=== PATIENT | female | born 1930 | race Caucasian/White ===

== ENCOUNTER 2016-09-14 14:49 | Inpatient (IN) | payer MEDICARE, OTHER ==
[2016-09-14] MEDS ORDERED: IOPAMIDOL 300 (61%) 150 ML VIAL IV ONE (14:50)
[2016-09-14 15:40] LABS: ABSOLUTE NEUTROPHIL COUNT 5.8 K/mm3 (1.8-7.7); BASO % 0.3 % (0.2-1.0); EOS % 0.1 % (0.9-2.9); HEMATOCRIT 36.6 % (37.0-47.0); IMM NEUT% 0.1 % (0-1); LYMPH # 0.3 (1.0-4.8); LYMPH % 4.9 % (15-45); MEAN CELL VOLUME 89.9 fl (81.0-99.0); MEAN CORPUSCULAR HEMOGLOBIN 31.9 pg (27.0-31.0); MEAN CORPUSCULAR HGB CONC 35.5 g/dl (33.0-37.0); MEAN PLATELET VOLUME 9.8 fl (7.4-10.4); MONO # 0.6 (0.0-0.8); MONO % 8.8 % (4-12); NEUT % 85.8 % (43-75); PLATELET COUNT 152 K/mm3 (130-400); RED CELL DISTRIBUTION WIDTH 13.2 % (11.5-14.5)
[2016-09-14 15:43] LABS: ALB/GLOB RATIO 1.2 (>1.0); ALBUMIN 3.6 gm/dL (3.5-5.7); CALCIUM 8.9 mg/dL (8.6-10.3)
[2016-09-14] MEDS ORDERED: LACTATED RINGERS 1,000 ML ONE (16:26)
--- NOTE | 2016-09-14 16:34 | CT ---
Exam: CT abdomen and pelvis with contrast COMPARISON: 11/26/2015 and radiographs 11/27/2015, 11/28/2015 and 11/29/2015 INDICATION: Abdominal pain and vomiting. TECHNIQUE: CT examination of the abdomen and pelvis was obtained following the administration of 125 of Isovue-300 intravenous contrast. Findings: Appearance of the abdomen is similar to that seen on 11/26/2015. There is relative dilation of the proximal small bowel which measures up to 3.7 cm in diameter. The ileum is relatively decompressed, with a subtle transition point seen within the right upper quadrant as annotated on axial image 53 of 113 and coronal reformation 29 of 71. No mass is identified in this location. There is no focal bowel wall thickening or pneumatosis. There is no free air or free intraperitoneal fluid. Mildly prominent mesenteric lymph nodes are noted, more significant for number rather than size, and are unchanged. Mesenteric vessels are patent. The uterus is absent. There is a stable cystic lesion within the deep left pelvis with a few peripheral calcifications which measures up to 4.7 x 3.8 cm. This is of uncertain etiology and significance. This could be related to the adnexa or perhaps a lymphocele. Nevertheless this is stable and probably of no clinical concern as patient. No additional pelvic lymphadenopathy or fluid collection. There is colonic diverticulosis, most pronounced within the sigmoid colon, without evidence of diverticulitis. There is right hip arthroplasty which slightly limits evaluation the right pelvic sidewall. Calcifications within the dependent portion of the urinary bladder unchanged, either urinary calculi within the urinary bladder wall. Urinary bladder otherwise unremarkable. Atheromatous and ectatic but nonaneurysmal abdominal aorta and iliac arteries. The liver, spleen, pancreas, adrenal glands and gallbladder are unremarkable. 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 There is mild fullness of the collecting systems without hydronephrosis. Kidneys otherwise unremarkable. Tiny splenic artery aneurysm is noted, of no clinical concern. Mild right basilar scarring or atelectasis is unchanged. Lung bases otherwise clear. Grade 1 anterolisthesis of L5 on S1 is similar. Superior endplate fracture of L1 is unchanged. Osteopenia. Multilevel facet arthropathy is present within the lumbar spine. No worrisome lytic or blastic osseous lesion is identified. IMPRESSION: 1. Findings most compatible with a developing or partial small bowel obstruction, similar to that seen on 11/26/2015. Etiology is uncertain. There is no free air or free intraperitoneal fluid. 2. No additional acute findings identified to explain patient's symptoms. Several stable incidental findings as above. Findings were discussed with Dr. Cox at 1630 hours 09/14/2016.
[2016-09-14 16:35] LABS: BAND 24 % (0-10); BASOPHIL 0 % (0-1); EOSINOPHIL 0 % (1-3); LYMPHOCYTE 5 % (15-45); MONOCYTE 6 % (4-12); NEUTROPHILS 65 % (43-75); PLATELET ESTIMATE NORMAL (NORMAL); TOTAL CELLS COUNTED 100
[2016-09-14] MEDS ORDERED: SODIUM CHLORIDE 0.9% 100 ML IV PRN (17:23)
[2016-09-14] MEDS ORDERED: BLISTEX LIPSTICK 1 EACH TP PRN (17:23)
[2016-09-14] MEDS ORDERED: ACETAMINOPHEN 650 MG SUP PR PRN (17:23)
[2016-09-14] MEDS ORDERED: MAGNESIUM HYDROXIDE 30 ML UDCUP PO PRN (17:23)
[2016-09-14] MEDS ORDERED: BISACODYL 5 MG TABLET.EC PO PRN (17:23)
[2016-09-14] MEDS ORDERED: MENTHOL/CETYLPYRD 1 EACH LOZENGE PO PRN (17:23)
[2016-09-14] MEDS ORDERED: BISACODYL 10 MG SUP PR PRN (17:23)
[2016-09-14] MEDS ORDERED: HYDROMORPHONE HCL 2 MG/ML SYRINGE IV PRN (17:29)
[2016-09-14] MEDS ORDERED: PROMETHAZINE HCL 6.25 MG in SODIUM CHLORIDE 0.9% 50 ML IV PRN (17:29)
[2016-09-14] MEDS ORDERED: ONDANSETRON 4 MG/2ML 2 ML VIAL IV PRN (17:29)
[2016-09-14 17:42] VITALS: BMI 28.9
[2016-09-14] MEDS ORDERED: HYDROMORPHONE HCL 1 MG/ML SYRINGE IV PRN (17:43)
[2016-09-14] MEDS ORDERED: HYDROMORPHONE HCL 0.5 MG/0.5 ML SYRINGE IV PRN (17:44)
[2016-09-14] MEDS ORDERED: PUMP TUBING ONE (18:10)
[2016-09-14] MEDS: SODIUM CHLORIDE 0.9% 1,000 ML IV SCH (18:14)
[2016-09-14] MEDS: DOCUSATE SODIUM 100 MG CAPSULE PO SCH (20:04)
--- NOTE | 2016-09-14 21:14 | HP ---
BRODERICK GAITAN [id number] DATE OF ADMISSION: 09/14/2016 CHIEF COMPLAINT: Nausea and vomiting. HISTORY OF PRESENT ILLNESS: The patient is an 86-year-old female who presented to the [facility] Emergency Department with complaints of repeated episodes of nausea and vomiting which started this morning. She also had an episode of diarrhea this morning. Workup in the emergency department showed evidence of an early partial small bowel obstruction. REVIEW OF SYSTEMS: Negative for any fatigue, fevers or chills. She denies any recent upper respiratory symptoms. She has a slightly chronic cough which she attributes to her allergies. She denies any chest pain, shortness of breath or palpitations. She has not had any significant abdominal pain. She has felt a bit nauseated, but is feeling better after she threw-up. She had a loose stool this morning as I mentioned. She denies any new arthralgias, but has chronic arthralgias due to osteoarthritis. She denies any headaches, fainting, blackouts or seizures. She has had no urinary complaints. Review of systems is otherwise negative. PAST MEDICAL HISTORY: Significant for: 1. A hospitalization for partial small bowel obstruction in November of 2015, which resolved spontaneously without surgery. 2. She has a past history significant for coronary artery disease, with a myocardial infarction in September of 2006, treated with a stent. 3. She has had chronic essential hypertension, as well as hyperlipidemia. 4. She has had hypothyroidism, on thyroid replacement. 5. Some chronic neck pain associated with cervical spondylosis. 6. She has had some mild chronic hyponatremia, with a serum sodium level generally around 128-133. PAST SURGICAL HISTORY: Significant for: 1. Appendectomy as a child. 2. Tonsillectomy. 3. She had four prior caesarian section. 4. She also had a hysterectomy many years ago. 5. She had a stent placed in the left anterior descending artery in [place] in September of 2006. 6. She had a screening colonoscopy in March of 2010, showing diverticulosis. 7. She had a left total knee arthroplasty in August of 2006. 8. She had a cystocele and suburethral sling placed in December of 2005. 9. Arthroscopic in the left knee, with a partial meniscectomy in January of 2005. 10. Left thumb surgery for a trigger finger in November of 2003. 11. She has had a vein stripping procedure in the past. ALLERGIES: Documented to: 1. Fentanyl. 2. Codeine. 3. Pollen. 4. Walnuts. CURRENT MEDICATIONS: Consist of: 1. Vitamin E 400 units twice daily. 2. Vitamin D-3, 1,000 units twice daily. 3. Vitamin C 500 mg twice daily. 4. Amlodipine 10 mg daily. 5. Extra-strength Tylenol 1,000 mg every four hours as needed for pain. 6. Ibuprofen 800 mg daily as needed for pain. 7. Colace 100 mg twice daily. 8. Vitamin D-3 plus calcium 500/200 units one daily. 9. Enteric-coated aspirin 81 mg daily. 10. Lovastatin 40 mg at bedtime. 11. Ativan 0.5 mg every six hours as needed for anxiety or at bedtime as needed for sleep. 12. Claritin 10 mg daily for allergies. 13. Lisinopril 10 mg daily. 14. Levothroid 75 mcg daily. 15. Fish oil 1,000 mg twice daily. 16. Toprol XL 100 mg daily. IMMUNIZATIONS: She had a Prevnar vaccination in June of 2016. She got a flu vaccination on 04/27/2016. It is believed she has had a pneumococcal vaccination since she was 63. FAMILY HISTORY: Positive for a father who of coronary artery disease. SOCIAL HISTORY: The patient is . She has five children. She has a daughter and several other children who live locally, and she lives independently at [facility]. She has never smoked. Denies any significant history of alcohol use. Denies any illicit drug use. She is [employer]. PHYSICAL EXAMINATION: VITAL SIGNS: Blood pressure 142/93. Heart rate up to 126. Oxygen saturations of 91% on room air. Respiratory rate is 17. Temperature is 98.1. Body mass index is 28.9, with a weight of 74 kilograms. GENERAL: This is a well-developed and well-nourished elderly female in no acute distress. HEENT: Unremarkable. NECK: Supple, without lymphadenopathy or thyromegaly. LUNGS: Clear to auscultation bilaterally. CARDIOVASCULAR: Reveals a regular tachycardia, without a murmur. ABDOMEN: Reveals mild distention. No significant tenderness. Slightly hypoactive bowel sounds. No guarding. PELVIC: Exam is deferred. RECTAL: Exam is deferred. EXTREMITIES: Show no peripheral edema, but she does have marked varicose veins in both lower extremities. IMAGING: A CT scan of the abdomen and pelvis was performed, showing findings consistent with an early or partial small bowel obstruction. No other acute findings. She did have some mild right basilar scarring versus atelectasis, favor scarring since this has been chronic. LABS: Laboratory studies showed a white count of 6.8, hemoglobin 13.0 and a platelet count of 152,000. Chemistry profile showed a sodium of 128, potassium 4.2, chloride 95, BUN of 23 and creatinine 0.9. Liver function tests are normal. Lipase is normal at 7. ASSESSMENT/PLAN: 1. The patient has had nausea and vomiting, with CT evidence of a partial small bowel obstruction. 2. She has a bit of tachycardia, suspect due to dehydration or anxiety. She will be given saline because of her mild chronic hyponatremia, and will monitor heart rate closely. 3. She has a history of coronary artery disease and some elevated blood pressure, so I am going to go ahead and put her on Lopressor 5 mg scheduled every six hours and give her a dose now. 4. She has a history of hypothyroidism and some mild chronic hyponatremia as I mentioned. 5. Also some chronic neck pain associated with cervical spondylosis. CODE STATUS: Not documented, and is full code by default. Further treatment and recommendations will depend on her hospital course. VTE risk is moderate and mechanical measures are being used for prophylaxis. cc: Dr. Avery Veronica
[2016-09-14] MEDS: METOPROLOL TARTRATE 1 MG/ML 5ML VIAL IV SCH (23:39)
[2016-09-15] MEDS ORDERED: LORAZEPAM 0.5 MG TABLET PO PRN (00:16)
[2016-09-15] MEDS ORDERED: MELATONIN 3 MG TABLET PO ONE ×2 (00:16→20:30)
[2016-09-15] MEDS ORDERED: METOPROLOL TARTRATE 1 MG/ML 5ML VIAL IV ONE ×2 (00:18→00:47)
[2016-09-15] MEDS: SODIUM CHLORIDE 0.9% 1,000 ML IV SCH ×4 (00:37→23:39)
[2016-09-15] MEDS ORDERED: METOPROLOL SUCCINATE (XL) 50 MG TAB.PRT.SR PO ONE (02:42)
[2016-09-15] MEDS: METOPROLOL SUCCINATE (XL) 50 MG TAB.PRT.SR PO SCH ×2 (02:46→08:50)
[2016-09-15] MEDS: METOPROLOL TARTRATE 1 MG/ML 5ML VIAL IV SCH ×4 (05:01→23:04)
[2016-09-15 05:56] LABS: ABSOLUTE NEUTROPHIL COUNT 3.3 K/mm3 (1.8-7.7); BASO % 0.2 % (0.2-1.0); EOS % 0.2 % (0.9-2.9); HEMATOCRIT 34.9 % (37.0-47.0); LYMPH # 0.5 (1.0-4.8); LYMPH % 10.8 % (15-45); MEAN CELL VOLUME 91.1 fl (81.0-99.0); MEAN CORPUSCULAR HEMOGLOBIN 31.3 pg (27.0-31.0); MEAN CORPUSCULAR HGB CONC 34.4 g/dl (33.0-37.0); MEAN PLATELET VOLUME 9.6 fl (7.4-10.4); MONO # 0.5 (0.0-0.8); MONO % 11.5 % (4-12); NEUT % 77.3 % (43-75); PLATELET COUNT 133 K/mm3 (130-400); RED CELL DISTRIBUTION WIDTH 13.4 % (11.5-14.5)
[2016-09-15 06:14] LABS: CALCIUM 8.5 mg/dL (8.6-10.3)
[2016-09-15 06:25] LABS: ACANTHROCYTES 1+; ANISOCYTOSIS 1+; ATYPICAL LYMPHOCYTE 2 %; BAND 4 % (0-10); BASOPHIL 0 % (0-1); EOSINOPHIL 0 % (1-3); LYMPHOCYTE 9 % (15-45); MONOCYTE 3 % (4-12); NEUTROPHILS 82 % (43-75); PLATELET ESTIMATE NORMAL (NORMAL); TOTAL CELLS COUNTED 100
--- NOTE | 2016-09-15 08:37 | RAD ---
ACUTE ABDOMINAL SERIES HISTORY: Bowel obstruction. Upright and supine radiographs of the abdomen were acquired. Upright chest radiograph also acquired. COMPARISON: 12/25/2015. Correlation also made against mold yarn supervisor topogram from CT examination, 09/14/2016. FINDINGS: BOWEL GAS PATTERN: Progressive distention of small bowel at the central abdomen, measuring up to 5.1 cm in width, or scattered gas identified within more distal loops of small bowel. AIR-FLUID LEVELS: Multiple small bowel air-fluid levels. FREE AIR: No gross free air. ABDOMINOPELVIC CALCIFICATIONS: Coarse calcification of the right hemipelvis and left upper quadrant. Findings compatible with rim calcified splenic artery aneurysm, 9 mm in size, seen on November 2015 CT imaging. LUNG MCDANIEL: Grossly clear. Aortic tortuosity and calcification. PLEURAL EFFUSION: None. OSSEOUS STRUCTURES: Defect of the right proximal humerus compatible with remote injury. Findings of lumbar spondylosis with compression deformity of the L1 vertebra, long-standing. Evidence of right hip arthroplasty. BLADDER: Increased density compatible with excretion of contrast. IMPRESSION: Progressive small bowel dilatation of multiple air-fluid levels, compatible with small bowel obstruction. No free air. Contrast excretion keeping with recent CT examination. Evidence of aortic atherosclerotic disease. Rounded calcification compatible with known splenic artery aneurysm. Redemonstration of L1 compression deformity and prior right hip arthroplasty.
[2016-09-15] MEDS: DOCUSATE SODIUM 100 MG CAPSULE PO SCH ×2 (08:48→21:04)
[2016-09-15] MEDS: ASPIRIN (ENTERIC COATED) 81 MG TABLET.EC PO SCH (08:48)
[2016-09-15] MEDS: LISINOPRIL 10 MG TABLET PO SCH (08:48)
[2016-09-15] MEDS: AMLODIPINE BESYLATE 5 MG TABLET PO SCH (08:49)
[2016-09-15] MEDS ORDERED: AMLODIPINE BESYLATE 10 MG TABLET PO SCH (09:00)
[2016-09-15] MEDS ORDERED: LACTATED RINGERS 500 ML IV SCH ×2 (10:38→10:45)
[2016-09-15] MEDS ORDERED: LACTATED RINGERS 1,000 ML ONE (10:40)
[2016-09-15] MEDS ORDERED: LACTATED RINGERS 500 ML IV ONE (11:20)
--- NOTE | 2016-09-15 12:00 | PDOC43 ---
- Subjective Chief Complaint: N/V, abd pain Subjective: Reports Pain Tolerable, Denies Flatus, Denies Bowel Movement, Denies Shortness of Breath, Denies Chest Pain, Denies Vomiting, Denies Fever - Objective Vital Signs Temperature 98.4 F 09/15/16 08:00 Pulse Rate 130 09/15/16 08:00 Respiratory Rate 18 09/15/16 08:00 Blood Pressure 140/93 09/15/16 08:00 O2 Saturation by Pulse Oximetry 92 09/15/16 08:00 Oxygen Delivery Method Room Air Oxygen Flow Rate 0 Intake and Output 09/14/16 09/15/16 09/16/16 06:59 06:59 06:59 Intake Total 1785 Output Total 1750 Balance 35 General: Alert, Oriented x3, Cooperative, No Acute Distress HEENT: Other (dry mucosa) Lungs: Clear to Auscultation Bilaterally Cardiovascular: Other (regular tachycardia) Abdomen: Soft, Normal Bowel Sounds, Mild Distention, No Tenderness Extremities: No Edema Skin: Warm, Dry, Intact Laboratory 09/15/16 05:30 09/15/16 05:30 09/15/16 05:30 RBC 3.83 L MCH 31.3 H Estimated GFR 94 H Calcium 8.5 L Current Medications: Current meds reviewed in EMR. - Problems: Assessment/Plan (1) Partial small bowel obstruction Status: Acute Assessment/Plan: persistent partial SBO likely due to adhesions,- bowel rest, IVF (2) HTN (hypertension), benign Status: Chronic Assessment/Plan: stable, cont meds with sips (3) CAD (coronary artery disease) Qualifiers: Coronary Disease-Associated Artery/Lesion type: [place] artery [place] vs. transplanted heart: [place] heart Associated angina: without angina Qualifier Code: (I25.10) Atherosclerotic heart disease of [place] coronary artery without angina pectoris Status: Chronic Assessment/Plan: denies chest pain-check troponin this am, on tele with unexplained sinus tachy despite IVF, not in sig. pain or anxiety-trial of IVF and cont beta gilbert, check TSH, consider CTA if develops resp. symptoms (4) Hypothyroid Qualifiers: Hypothyroidism type: acquired Qualifier Code: (E03.9) Hypothyroidism, unspecified Status: Chronic Assessment/Plan: on replacement-TSH pending (5) Hyponatremia Status: Chronic Assessment/Plan: chronic at baseline VTE Prophylaxis: mech measures due to possible need for surgery Disposition: PT/OT evals pending likely home in 1-3 days as obstruction clears
[2016-09-15] MEDS ORDERED: IOPAMIDOL 370 (76%) 100 ML VIAL IV ONE (14:18)
--- NOTE | 2016-09-15 14:54 | CT ---
ADDENDUM #1 3D imaging was not performed. ORIGINAL REPORT CHEST CTA HISTORY: Tachycardia.. TECHNIQUE: Following the administration of 80 mL Isovue-370 intravenous contrast, contiguous axial images were acquired from the thoracic inlet to the diaphragmatic hiatus for CT pulmonary angiography. Comparison 11/26/2015. FINDINGS: PULMONARY ARTERIAL TREE: Technically adequate enhancement: No dominant filling defects. THORACIC AORTA: Extensive atherosclerotic calcification. Mild aneurysmal dilatation of the ascending aorta, up to 4.1 cm in size. Prominent coronary artery calcifications are noted. LUNGS: Diminished lung volumes. Interval development of small pleural effusions. MODESTO AND MEDIASTINUM: No abnormally enlarged lymph nodes. AXILLAE: No grossly enlarged lymph nodes. UPPER ABDOMEN: Contrast within the stomach compatible with ongoing small bowel follow-through. OSSEOUS STRUCTURES: Findings of thoracic disc degeneration. Superior subluxation of the right proximal humerus at the right shoulder associated dystrophic calcifications. IMPRESSION: 1. No CTA evidence of proximal order pulmonary embolus. 2. Low lung volumes with interval development of small pleural effusions. No gross airspace consolidation. 3. Findings of aortic and coronary artery atherosclerotic disease with mild aneurysmal dilatation of the ascending aorta. 4. Prominent degeneration of the right shoulder. 5. Thoracic spondylosis. 6. Oral contrast in keeping with ongoing small bowel follow-through study.
--- NOTE | 2016-09-15 16:35 | RAD ---
SMALL BOWEL FOLLOW-THROUGH HISTORY: Partial obstruction. Serial radiographs acquired following intake of oral contrast. Correlation against acute abdominal series from 09/15/2016. TRANSIT TIME TO COLON: 2 hours. EXTRINSIC MASS EFFECT: None. DISTRIBUTION OF BOWEL LOOPS: Grossly unremarkable. BOWEL DILATATION: Resolution of central small bowel dilatation.. POSTSURGICAL CHANGE: Evidence of prior right hip arthroplasty. Demonstration of L1 compression deformity IMPRESSION: Gastrografin small bowel follow-through, transit time to colon approximately 2 hours with resolution of previously noted small bowel dilatation of the central abdomen..
[2016-09-15] MEDS ORDERED: METOPROLOL TARTRATE 1 MG/ML 5ML VIAL IV SCH (18:19)
[2016-09-15] MEDS ORDERED: DILTIAZEM HCL 5 MG/ML 5ML VIAL IV ONE (23:35)
[2016-09-16] LABS: HEMATOCRIT 33.7 % (37.0-47.0); HEMOGLOBIN 11.6 gm/l (12.0-16.0); MEAN CELL VOLUME 91.1 fl (81.0-99.0); MEAN CORPUSCULAR HEMOGLOBIN 31.4 pg (27.0-31.0); MEAN CORPUSCULAR HGB CONC 34.4 g/dl (33.0-37.0); RED CELL DISTRIBUTION WIDTH 13.4 % (11.5-14.5)
[2016-09-16 00:25] LABS: CALCIUM 8.6 mg/dL (8.6-10.3); MAGNESIUM 1.8 mg/dL (1.9-2.7)
[2016-09-16] MEDS ORDERED: MAGNESIUM SULFATE 2 G/50 ML 2 G in Premix (Water) 50 ml 1 EACH IV ONE (00:48)
[2016-09-16] MEDS ORDERED: POTASSIUM CHLORIDE 20 MEQ in LACTATED RINGERS 1,000 ML IV SCH (00:50)
[2016-09-16] MEDS ORDERED: MAGNESIUM SULFATE 1 G/100 ML 200 ML IV ONE (01:17)
[2016-09-16] MEDS ORDERED: POTASSIUM CHLORIDE 20MEQ/100ML 100 ML IV ONE (01:19)
[2016-09-16] MEDS ORDERED: LACTATED RINGERS 1,000 ML ONE (01:49)
[2016-09-16] MEDS ORDERED: PUMP TUBING ONE ×2 (01:49→02:38)
[2016-09-16] MEDS: MAGNESIUM SULFATE 1 G/100 ML 1 G in PREMIX BAG 1 EACH IV SCH ×2 (02:14→04:16)
[2016-09-16] MEDS ORDERED: DILTIAZEM HCL 5 MG/ML 5ML VIAL IV ONE ×2 (03:38→19:42)
[2016-09-16] MEDS ORDERED: SODIUM CHLORIDE 0.9% FLUSH 10 ML ONE (03:55)
[2016-09-16] MEDS ORDERED: IV START KIT ONE (03:55)
[2016-09-16] MEDS: NS/Potassium Chlor 20 mEq 1,000 ML IV SCH ×3 (04:14→22:19)
[2016-09-16] MEDS: METOPROLOL TARTRATE 1 MG/ML 5ML VIAL IV SCH (05:16)
[2016-09-16] MEDS: ASPIRIN (ENTERIC COATED) 81 MG TABLET.EC PO SCH (09:45)
[2016-09-16] MEDS: AMLODIPINE BESYLATE 5 MG TABLET PO SCH (09:45)
[2016-09-16] MEDS: LISINOPRIL 10 MG TABLET PO SCH (09:46)
[2016-09-16] MEDS: METOPROLOL SUCCINATE (XL) 50 MG TAB.PRT.SR PO SCH (09:47)
[2016-09-16 12:33] LABS: CALCIUM 8.5 mg/dL (8.6-10.3); MAGNESIUM 2.1 mg/dL (1.9-2.7)
[2016-09-16] MEDS ORDERED: METOPROLOL TARTRATE 1 MG/ML 5ML VIAL IV ONE ×2 (14:47→16:13)
--- NOTE | 2016-09-16 15:11 | PDOC43 ---
- Subjective Chief Complaint: N/V, abd pain PAtietn awake and alert, comfortable with 6-7 people in room. She denies any pain, chest pressure or palpitations. Denies feeling racing heart beat. No abdominal pain, no longer vomiting, has not had a bowel movement nor passed gas. Pre nursing, she did have flatus. Subjective: Reports Pain Tolerable, Denies Tolerating Diet Well, Denies Adequate Oral Intake, Denies Bowel Movement, Denies Shortness of Breath, Denies Cough, Denies Chest Pain, Denies Abdominal Pain, Denies Nausea, Denies Vomiting , Denies Fever - Objective Vital Signs Temperature 97.7 F 09/16/16 11:33 Pulse Rate 67 09/16/16 11:33 Respiratory Rate 18 09/16/16 13:00 Blood Pressure 131/76 09/16/16 11:33 O2 Saturation by Pulse Oximetry 96 09/16/16 11:33 Oxygen Delivery Method Nasal Cannula Oxygen Flow Rate 2 Intake and Output 09/14/16 09/15/16 09/16/16 23:59 23:59 23:59 Intake Total 1000 3072 1157 Output Total 2950 460 Balance 1000 122 697 General: Alert, Oriented x3, Cooperative, No Acute Distress HEENT: Atraumatic, PERRLA, EOMI, Mucous membr. moist/pink Lungs: Clear to Auscultation Bilaterally, Normal Air Movement, Other (no crackles or wheeze) Cardiovascular: Regular Rate and Rhythm, Normal S1, Normal S2, Other ( tachycardic) Abdomen: Soft, Hypoactive Bowel Sounds, Non-Distended, No Rigid, No Tenderness, No Rebounding Extremities: No Cyanosis, No Edema, No Tenderness Peripheral Pulses: Radial (L): 2+, Radial (R): 2+ Neurological: Normal Speech Psych/Mental Status: Normal Mood Laboratory 09/15/16 23:50 09/16/16 11:35 09/16/16 09/15/16 11:35 23:50 RBC 3.70 L MCH 31.4 H Estimated GFR 94 H 59 L Calcium 8.5 L Magnesium 1.8 L Troponin I 0.23 H 0.12 H Current Medications: Current meds reviewed in EMR. - Problems: Assessment/Plan (1) Partial small bowel obstruction Status: Acute Assessment/Plan: persistent partial SBO likely due to adhesions,- bowel rest, IVF questionable if passing gas, no bowel movements (2) Hypokalemia Status: Acute Assessment/Plan: Resolved with replacement (3) Hyponatremia Status: Acute Assessment/Plan: chronic at baseline resolved with IVF (4) HTN (hypertension), benign Status: Chronic Assessment/Plan: stable, cont meds with sips (5) Hypothyroid Qualifiers: Hypothyroidism type: acquired Qualifier Code: (E03.9) Hypothyroidism, unspecified Status: Chronic Assessment/Plan: on replacement-TSH pending (6) CAD (coronary artery disease) Qualifiers: Coronary Disease-Associated Artery/Lesion type: [place] artery [place] vs. transplanted heart: [place] heart Associated angina: without angina Qualifier Code: (I25.10) Atherosclerotic heart disease of [place] coronary artery without angina pectoris Status: Chronic Assessment/Plan: denies chest pain-check troponin this am, on tele with unexplained sinus tachy despite IVF, not in sig. pain or anxiety-trial of IVF and cont beta gilbert, check TSH, consider CTA if develops resp. symptoms Has elevated troponin, from demand ischemia and episodes of tachycardia (7) Tachycardia Status: Acute Assessment/Plan: unknown etiology, TSH and electrolyte disturbances resolved. Was in AFIb but converted after 2 doses of diltiazem. She had an episode of her heart rate in the 30's and then a few dropped beats but returned to sinus rhythm will try dose of metoprolol but caution due to inducing hypotension or AV block (8) Anemia Qualifiers: Anemia type: unspecified type Qualifier Code: (D64.9) Anemia, unspecified Status: Acute Assessment/Plan: dilutional VTE Prophylaxis: mech measures due to possible need for surgery Disposition: PT/OT evals pending likely home in 1-3 days as obstruction clears
[2016-09-16 16:03] LABS: URINE BILIRUBIN NEGATIVE (NEGATIVE); URINE BLOOD 3+ (NEGATIVE); URINE GLUCOSE (UA) NEGATIVE (NEGATIVE); URINE LEUKOCYTE ESTERASE NEGATIVE (NEGATIVE); URINE NITRITE NEGATIVE (NEGATIVE); URINE PROTEIN TRACE (NEGATIVE); URINE UROBILINOGEN NORMAL (0-1 mg/dl)
[2016-09-16 16:04] LABS: URINE APPEARANCE CLEAR; URINE COLOR YELLOW
[2016-09-16] MEDS ORDERED: METOPROLOL TARTRATE IV ONE (16:07)
[2016-09-16] MEDS ORDERED: SODIUM CHLORIDE 0.9% IV ONE (16:07)
[2016-09-16 16:14] LABS: URINE EPITHELIAL CELLS 0-2 /hpf
[2016-09-16 16:15] LABS: URINE BACTERIA NONE SEEN
[2016-09-16] MEDS: CEFTRIAXONE 1 GRAM DUPLEX 50 ML IV SCH (16:56)
[2016-09-16] MEDS ORDERED: SODIUM CHLORIDE 0.9% IV SCH (17:00)
[2016-09-16] MEDS ORDERED: CEFTRIAXONE SODIUM IV SCH (17:00)
--- NOTE | 2016-09-16 20:48 | PDOC36 ---
Provider Note Subject: Patient with sinus tach for several hours this afternoon. Provided 5 mg IV metoprolol without response and then 10 mg IV metoprolol with minimal response in sinus tachycardia on telemetry. Patient asymptomatic and comfortable. Due to episode of bradycardia early this morning following cardizem, held off further medication. With continued HR in the 130's for 5 hours, provided dose of diltiazem. Patient then converted to Afib/flutter with HR in 80-100's. Will continue to monitor.
[2016-09-16] MEDS: PANTOPRAZOLE SODIUM 40 MG VIAL IV SCH (21:29)
[2016-09-16] MEDS: MELATONIN 3 MG TABLET PO SCH (21:34)
[2016-09-17] MEDS ORDERED: SODIUM CHLORIDE 0.9% FLUSH 10 ML ONE (00:02)
[2016-09-17] MEDS ORDERED: IV START KIT ONE (00:03)
[2016-09-17] MEDS: NS/Potassium Chlor 20 mEq 1,000 ML IV SCH ×3 (03:59→19:57)
[2016-09-17 06:31] LABS: HEMOGLOBIN 11.6 gm/l (12.0-16.0); MEAN CELL VOLUME 89.2 fl (81.0-99.0); MEAN CORPUSCULAR HEMOGLOBIN 31.4 pg (27.0-31.0); MEAN CORPUSCULAR HGB CONC 35.2 g/dl (33.0-37.0)
[2016-09-17] MEDS ORDERED: DILTIAZEM HCL 60 MG TABLET PO ONE (06:41)
[2016-09-17 06:44] LABS: CALCIUM 9.3 mg/dL (8.6-10.3); MAGNESIUM 1.7 mg/dL (1.9-2.7)
--- NOTE | 2016-09-17 07:11 | PDOC43 ---
- Subjective Chief Complaint: N/V, abd pain Patient awake and alert, denies any abdominal pain. She cannot feel her rapid heart, denies lightheadedness or shortness of breath. She would like some water. Passed gas yesterday but no bowel movements. Subjective: Reports Pain Tolerable, Reports Flatus, Denies Tolerating Diet Well , Denies Adequate Oral Intake, Denies Bowel Movement, Denies Shortness of Breath , Denies Cough, Denies Chest Pain, Denies Abdominal Pain, Denies Nausea, Denies Vomiting - Objective Vital Signs Temperature 97.7 F 09/17/16 03:40 Pulse Rate 62 09/17/16 03:40 Respiratory Rate 18 09/17/16 03:40 Blood Pressure 126/54 09/17/16 03:40 O2 Saturation by Pulse Oximetry 92 09/17/16 03:40 Oxygen Delivery Method Nasal Cannula Oxygen Flow Rate 2 Intake and Output 09/15/16 09/16/16 09/17/16 23:59 23:59 23:59 Intake Total 3072 1157 Output Total 2950 960 1200 Balance 122 197 -1200 General: Alert, Oriented x3, Cooperative, No Acute Distress HEENT: Atraumatic, PERRLA, EOMI, Mucous membr. moist/pink Lungs: Clear to Auscultation Bilaterally, Normal Air Movement, Other (no crackle or wheeze) Cardiovascular: Regular Rate and Rhythm, Normal S1, Normal S2, Other ( tachycardia) Abdomen: Soft, Normal Bowel Sounds, Mild Distention, No Rigid, No Tenderness, No Rebounding Extremities: No Cyanosis, No Edema, No Tenderness Peripheral Pulses: Radial (L): 2+, Radial (R): 2+, Posterior Tibialis (L): 2+, Posterior Tibialis (R): 2+ Neurological: Normal Speech Psych/Mental Status: Normal Mood Laboratory 09/17/16 05:30 09/17/16 05:30 09/17/16 09/16/16 05:30 11:35 RBC 3.70 L MCH 31.4 H Anion Gap 7 L Estimated GFR 94 H 94 H Calcium 8.5 L Magnesium 1.7 L Troponin I 0.23 H Current Medications: Current meds reviewed in EMR. - Problems: Assessment/Plan (1) Partial small bowel obstruction Status: Acute Assessment/Plan: persistent partial SBO likely due to adhesions,- bowel rest, IVF questionable if passing gas, no bowel movements (2) Hypokalemia Status: Acute Assessment/Plan: Resolved with replacement (3) Hyponatremia Status: Acute Assessment/Plan: chronic at baseline resolved with IVF (4) HTN (hypertension), benign Status: Chronic Assessment/Plan: stable, cont meds with sips (5) Hypothyroid Qualifiers: Hypothyroidism type: acquired Qualifier Code: (E03.9) Hypothyroidism, unspecified Status: Chronic Assessment/Plan: on replacement-TSH pending (6) CAD (coronary artery disease) Qualifiers: Coronary Disease-Associated Artery/Lesion type: [place] artery [place] vs. transplanted heart: [place] heart Associated angina: without angina Qualifier Code: (I25.10) Atherosclerotic heart disease of [place] coronary artery without angina pectoris Status: Chronic Assessment/Plan: denies chest pain-check troponin this am, on tele with unexplained sinus tachy despite IVF, not in sig. pain or anxiety-trial of IVF and cont beta gilbert, check TSH, consider CTA if develops resp. symptoms Has elevated troponin, from demand ischemia and episodes of tachycardia (7) Tachycardia Status: Acute Assessment/Plan: unknown etiology, TSH and electrolyte disturbances resolved. Was in AFIb but converted after 2 doses of diltiazem. She had an episode of her heart rate in the 30's and then a few dropped beats but returned to sinus rhythm will try dose of metoprolol but caution due to inducing hypotension or AV block (8) Anemia Qualifiers: Anemia type: unspecified type Qualifier Code: (D64.9) Anemia, unspecified Status: Acute Assessment/Plan: dilutional (9) Atrial fibrillation with rapid ventricular response Status: Acute Assessment/Plan: Presumed new onset. Patient asymptomatic. She converted to NSR after 2 IV doses of diltiazem AM of 09/16/2016 but then developed bradycardia. During the afternoon of 09/16/2016 little response to IV metoprolol but converted from sinus tachycardia to Afib/flutter with the rate in 80-100's. Has since rebound to HR in the 130's. Will try oral cardizem. Patient currently taking aspirin and will continue this. CHADs-Vasc2 score of 5. Reviewed with patient the recommendation to start anti-coagulation and she wants to discuss this with her daughter. Will order echocardiogram (10) Troponin level elevated Status: Acute Assessment/Plan: from demand ischemia VTE Prophylaxis: [facility] measures due to possible need for surgery Disposition: PT/OT evals pending likely home in 1-3 days as obstruction clears
[2016-09-17] MEDS ORDERED: MAGNESIUM SULFATE 2 G/50 ML 2 G in Premix (Water) 50 ml 1 EACH IV ONE (07:30)
[2016-09-17 07:41] LABS: TROPONIN I 0.11 ng/ml (0.0-0.06)
[2016-09-17 07:44] LABS: CKMB ISOENZYME 4.9 ng/ml (0.6-6.3)
[2016-09-17] MEDS: METOPROLOL SUCCINATE (XL) 50 MG TAB.PRT.SR PO SCH (08:19)
[2016-09-17] MEDS: LISINOPRIL 10 MG TABLET PO SCH (08:20)
[2016-09-17] MEDS: ASPIRIN (ENTERIC COATED) 81 MG TABLET.EC PO SCH (08:20)
--- NOTE | 2016-09-17 10:07 | PDOC36 ---
Provider Note Subject: Reviewed patient course with patient and her daughter who is the POA. She is in atrial fibrillation/flutter with response marissa barba, trying oral dosing today to see if tachycardia improves. With her CHADs-VASc score, requires anti- coagulation but is already taking aspirin. Conversation as to increase anti- coagulation. Family is going to discuss and decide. Echocardiogram ordered for tomorrow. Advancing diet to see SBO improving as active bowel sounds this morning and continues to be pain free. The daughter recalled that the patient has had A-Fib in the past following a knee arthroplasty in 2006-02. She was cardioverted at the time with no further work-up, management.
[2016-09-17] MEDS: CEFTRIAXONE 1 GRAM DUPLEX 50 ML IV SCH (16:23)
[2016-09-17] MEDS ORDERED: POLYVINYL ALCOHOL 1.4% (TEARS) 300 GTTS/BOT SOLN.DROP OU PRN (17:26)
[2016-09-17] MEDS: MELATONIN 3 MG TABLET PO SCH (20:40)
[2016-09-17] MEDS: PANTOPRAZOLE SODIUM 40 MG VIAL IV SCH (20:40)
[2016-09-17] MEDS ORDERED: DILTIAZEM HCL 30 MG TABLET PO ONE (21:45)
[2016-09-18] MEDS ORDERED: DILTIAZEM HCL 30 MG TABLET PO ONE ×2 (00:12→06:01)
[2016-09-18] MEDS: METOPROLOL SUCCINATE (XL) 50 MG TAB.PRT.SR PO SCH (08:01)
[2016-09-18] MEDS: ASPIRIN (ENTERIC COATED) 81 MG TABLET.EC PO SCH (08:02)
[2016-09-18] MEDS: LISINOPRIL 10 MG TABLET PO SCH (08:02)
[2016-09-18 08:44] LABS: CALCIUM 8.8 mg/dL (8.6-10.3); MAGNESIUM 1.8 mg/dL (1.9-2.7)
[2016-09-18] MEDS ORDERED: MAGNESIUM SULFATE 2 G/50 ML 2 G in Premix (Water) 50 ml 1 EACH IV ONE (12:12)
[2016-09-18] MEDS ORDERED: [UNRECOGNIZED DRUG - OTHER] IV ONE (12:13)
[2016-09-18] MEDS ORDERED: MAGNESIUM SULFATE IV ONE (12:13)
[2016-09-18] MEDS ORDERED: POTASSIUM CHLORIDE IV ONE (12:13)
[2016-09-18] MEDS ORDERED: PUMP TUBING ONE (12:43)
--- NOTE | 2016-09-18 12:50 | PDOC43 ---
- Subjective Chief Complaint: N/V, abd pain Patient reports feeling ok. Family reports some stool incontinence. Did walk some, ate well. No abdominal complaints. No respiratory c/o. Was having some fast/slow HR, but currently doing well. - Objective Vital Signs Temperature 98.0 F 09/18/16 11:48 Pulse Rate 86 09/18/16 11:48 Respiratory Rate 18 09/18/16 11:48 Blood Pressure 106/70 09/18/16 11:48 O2 Saturation by Pulse Oximetry 95 09/18/16 11:48 Oxygen Delivery Method Room Air Oxygen Flow Rate 0 Vital Signs Last 12 Hours Temp Pulse Resp BP Pulse Ox 09/18/16 11:48 98.0 F 86 18 106/70 95 09/18/16 07:50 98.0 F 130 18 122/94 94 09/18/16 07:30 18 09/18/16 03:43 97.7 F 136 18 156/110 92 09/18/16 02:10 18 09/18/16 01:15 133 09/18/16 00:10 137 147/109 Intake and Output 09/16/16 09/17/16 09/18/16 23:59 23:59 23:59 Intake Total 1157 1500 590 Output Total 960 3100 2950 Balance 197 -1600 -2360 General: Alert, Cooperative, No Acute Distress Lungs: Other (some crackles R base posteriorly.) Cardiovascular: Irregular Abdomen: Soft, Normal Bowel Sounds, Non-Distended Extremities: Edema (trace) Skin: Normal Color Neurological: Normal Speech Psych/Mental Status: Normal Affect, Other (pleasant) Laboratory 09/17/16 05:30 09/18/16 05:30 09/18/16 05:30 BUN 5 L Estimated GFR 116 H Magnesium 1.8 L Current Medications: Current meds reviewed in EMR. Active Medications Acetaminophen (Tylenol) 650 mg MI Q6H PRN PRN Reason: Pain or Temperature > 100.5 F Artificial Tears (Tears Naturale) 2 gtts OU Q1-2H PRN PRN Reason: DRY EYES Aspirin (Ecotrin) 81 mg PO DAILY EVAN Last Admin: 09/18/16 08:02 Dose: 81 mg Benzocaine/Menthol (Cepacol) 1 each PO PRN PRN PRN Reason: Sore Throat Hydromorphone HCl (Dilaudid) 0.5 - 2 mg IV Q2H PRN PRN Reason: Pain Hydromorphone HCl (Dilaudid) 0.5 - 2 mg IV Q2H PRN PRN Reason: Pain Hydromorphone HCl (Dilaudid) 0.5 - 2 mg IV Q2H PRN PRN Reason: Pain Sodium Chloride (Sodium Chloride 0.9%) 100 mls @ 25 mls/hr IV PRN PRN PRN Reason: Flush Promethazine HCl 6.25 mg/ (Sodium Chloride) 50.25 mls @ 200 mls/hr IV Q4H PRN PRN Reason: Nausea/Vomiting Ceftriaxone Sodium/Dextrose (Rocephin 1 Gram Premix) 50 mls @ 100 mls/hr IV Q24H [facility] Last Admin: 09/17/16 16:23 Dose: 100 mls/hr Lisinopril (Prinivil) 10 mg PO DAILY [facility] Last Admin: 09/18/16 08:02 Dose: 10 mg Magnesium Hydroxide (Milk Of Magnesia) 30 ml PO DAILY PRN PRN Reason: Constipation Melatonin (Melatonin) 3 mg PO BEDTIME [facility] Last Admin: 09/17/16 20:40 Dose: 3 mg Metoprolol Succinate (Toprol Xl) 100 mg PO DAILY [facility] Last Admin: 09/18/16 08:01 Dose: 100 mg Ondansetron HCl (Zofran) 4 mg IV Q4H PRN PRN Reason: Nausea/Vomiting Last Admin: 09/14/16 18:49 Dose: 4 mg Pantoprazole Sodium (Protonix) 40 mg IV Q24H [facility] Last Admin: 09/17/16 20:40 Dose: 40 mg Petrolatum/Paraffin/Mineral Oil (Blistex) 1 each TP PRN PRN PRN Reason: Dry and/or chapped lips Sodium Chloride (Normal Saline 10ml Flush) 10 - 50 ml IV PRN PRN PRN Reason: IV Flush Last Admin: 09/17/16 20:41 Dose: 20 ml Sodium Chloride (Normal Saline 10ml Flush) 10 ml IV Q8HR [facility] Last Admin: 09/18/16 08:02 Dose: 10 ml - Problems: Assessment/Plan (1) Partial small bowel obstruction Status: Acute Assessment/Plan: Appears resolved. partial SBO likely due to adhesions,- PO intake: 1500 in yesterday, 590 so far today. Plan check KUB, appears to be doing well. (2) Atrial fibrillation with rapid ventricular response Status: Acute Assessment/Plan: Presumed new onset, and actually just converted NSR now again. Patient asymptomatic. She converted to NSR after 2 IV doses of diltiazem AM of 09/16/2016 but then developed bradycardia. During the afternoon of 09/16/2016 little response to IV metoprolol but converted from sinus tachycardia to Afib/flutter with the rate in 80-100's. Started on oral cardizem. Patient currently taking aspirin for CAD and will continue this. CHADs-Vasc2 score of 5. Reviewed with patient the recommendation to start anti-coagulation and she wants to discuss this with her daughter. Will order echocardiogram, they would like me to review with Dr Singh. He suggested starting warfarin. (3) HTN (hypertension), benign Status: Chronic Assessment/Plan: stable, cont meds with sips Will try to just use metoprolol for rate limiting. (4) Bradycardia Status: Acute Assessment/Plan: Associated with treatment for atrial fib, with rapid ventricular rate. Not currently bradycardic (5) Hypokalemia Status: Acute Assessment/Plan: Resolved with replacement, but recurred some - more replacement planned. Also replacing magnesium as well. VTE Prophylaxis: mech measures initially due to concern for surgery. Now will be starting on coumadin Disposition: likely home in 1 day.
[2016-09-18] MEDS ORDERED: WARFARIN PER PHARMACY 1 EACH DOSE PO SCH (13:00)
--- NOTE | 2016-09-18 13:59 | RAD ---
ABDOMEN ONE VIEW HISTORY: Follow-up small bowel obstruction. Supine abdominal radiograph acquired. COMPARISON: Acute abdominal series 09/15/2016, small bowel follow-through 09/15/2016 FINDINGS: BOWEL GAS PATTERN: Scattered gas within large and small bowel, gas extending to the rectum. No residual small bowel dilatation. Evidence of colonic diverticulosis. ABDOMINOPELVIC CALCIFICATIONS: Vascular calcifications on the right. Coarse calcification at the splenic hilum compatible with splenic artery aneurysm formation. OSSEOUS STRUCTURES: Compression deformity at L1. Prior right hip arthroplasty. Prominent changes of lumbar spondylosis. IMPRESSION: Nonobstructive bowel gas pattern, gas extending to the rectum. Evidence of colonic diverticulosis. Redemonstration of lumbar spondylosis and prior right hip arthroplasty. L1 compression deformity, stable. 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
[2016-09-18 14:15] LABS: INR 1.2; PROTHROMBIN TIME 12.7 SECONDS (9.3-11.4)
[2016-09-18] MEDS ORDERED: WARFARIN SODIUM 2.5 MG TABLET PO SCH (16:00)
[2016-09-18] MEDS ORDERED: LORAZEPAM 0.5 MG TABLET PO PRN (20:57)
[2016-09-18] MEDS: MELATONIN 3 MG TABLET PO SCH (22:00)
[2016-09-18] MEDS: PANTOPRAZOLE SODIUM 40 MG VIAL IV SCH (22:00)
[2016-09-19 07:06] LABS: BASO % 0.5 % (0.2-1.0); EOS % 0.7 % (0.9-2.9); HEMATOCRIT 36.9 % (37.0-47.0); HEMOGLOBIN 13.4 gm/l (12.0-16.0); IMM NEUT # 0.1 K/mm3 (0-0.2); IMM NEUT% 1.2 % (0-1); LYMPH # 0.9 (1.0-4.8); LYMPH % 15.1 % (15-45); MEAN CELL VOLUME 86.6 fl (81.0-99.0); MEAN CORPUSCULAR HEMOGLOBIN 31.5 pg (27.0-31.0); MEAN CORPUSCULAR HGB CONC 36.3 g/dl (33.0-37.0); MEAN PLATELET VOLUME 9.6 fl (7.4-10.4); MONO # 0.8 (0.0-0.8); MONO % 13.4 % (4-12); NEUT % 69.1 % (43-75); PLATELET COUNT 191 K/mm3 (130-400); RED CELL DISTRIBUTION WIDTH 12.8 % (11.5-14.5)
[2016-09-19 08:13] LABS: ALB/GLOB RATIO 1.4 (>1.0); ALBUMIN 3.9 gm/dL (3.5-5.7); CALCIUM 9.1 mg/dL (8.6-10.3)
[2016-09-19] MEDS: ASPIRIN (ENTERIC COATED) 81 MG TABLET.EC PO SCH (08:18)
[2016-09-19] MEDS: METOPROLOL SUCCINATE (XL) 50 MG TAB.PRT.SR PO SCH (08:18)
[2016-09-19] MEDS: LISINOPRIL 10 MG TABLET PO SCH (08:18)
[2016-09-19 08:19] LABS: INR 1.09; PROTHROMBIN TIME 11.4 SECONDS (9.3-11.4)
[2016-09-19 11:23] VITALS: BP 148/95
[2016-09-19] MEDS ORDERED: POTASSIUM CHLORIDE 20 MEQ TAB.PRT.SR PO ONE (11:30)
--- NOTE | 2016-09-19 16:47 | PDOC5 ---
ADMIT DATE: 09/14/16 DISCHARGE DATE: 09/19/16 ADMISSION DIAGNOSES: Small Bowel Obstruction Discharge Diagnoses: Small bowel obstruction Afib/flutter with rapid ventricular rate CAD HTN HLD Hypothyroidism Cervical spondylosis Hyponatremia PROCEDURES PERFORMED THIS HOSPITALIZATION: None CONSULTATIONS: None HOSPITAL COURSE: This is a 86 year old female who presented to the emergency department for episodes of nausea and vomiting. She was found to have a small bowel obstruction on imaging and she was admitted to the hospital for management. She was hyponatremic with a sodium of 128 on presentation and this was slowly corrected over the next few days. She was placed on telemetry and noted to developed tachycardia. After 2 doses of diltiazem her heart rate slowed and eventually dipped to the low 60's. Her herat rate then rebound to the 130's over the course of September 15. Metoprolol was provided with little response. A dose of diltiazem converted the tachycardia but she then developed Afib-Flutter and again became bradycardic several hours later. Her heart rhythm converted to sinus and remained in the 60-80 over the past day of hospitalization without further medication. With the development of Atrial fibrillation, an echocardiogram was obtained and she was started on coumadin. Echocardiogram illustrated an EF of 50-55% with low systolic function. Her vomiting resolved and she was tolerating genearl diet. She had regular bowel movements and worked with therapy. - Exam Vital Signs Temperature 98.0 F 09/19/16 08:08 Pulse Rate 84 09/19/16 08:08 Respiratory Rate 18 09/19/16 08:08 Blood Pressure 174/114 09/19/16 08:08 O2 Saturation by Pulse Oximetry 95 09/19/16 08:08 Oxygen Delivery Method Room Air Oxygen Flow Rate 0 General: Alert, Oriented x3, Cooperative, No Acute Distress HEENT: Atraumatic, PERRLA, EOMI, Mucous membr. moist/pink Lungs: Clear to Auscultation Bilaterally, Normal Air Movement, Other (no crackle or wheeze) Cardiovascular: Regular Rate and Rhythm, Normal S1, Normal S2 Abdomen: Soft, Non-Distended, No Rigid, No Tenderness, No Rebounding Extremities: No Cyanosis, No Edema, No Tenderness Neurological: Normal Speech Psych/Mental Status: Normal Mood - Results Laboratory 09/19/16 06:20 09/19/16 06:09/19/16 09/18/16 06:20 13:50 MCH 31.5 H PT 12.7 H Estimated GFR 94 H % Immature Granulocyt 1.2 H Laboratory Tests 09/14/16 09/15/16 09/16/16 15:20 23:50 11:35 Sodium 128 L CK-MB (CK-2) Troponin I 0.12 H 0.23 H 09/17/16 06:00 Sodium CK-MB (CK-2) 4.9 Troponin I 0.11 H Imaging Results: CT Abdomen/pelvis 09/14/2016: Developing or partial SBO. No free air or intraperitoneal fluid. CTA Chest 09/15/2016: No CTA evidence of PE. Development of small pleural effusions. No gross airspace consolidation. Aortic and coronary atherosclerotic disease with mild aneurysmal dilatation of ascending aorta. Degeneration of R shoulder. Thoracic spondylosis. KUB 09/15/2016: Progressive small bowel dilatation of multiple air-fluid levels. No free air. Rounded calcification compatible with known splenic artery aneurysm. L1 compression deformity. Prior right hip arthroplasty. Small bowel Follow Through 09/15/2016: Gastrografin small bowel follow through, transit time 2 hours with resolution of previous small bowel dilatation. KUB 09/18/2016: non-obstructive bowel gas pattern Echocardiogram: EF 50-55%. Mild low-normal LV, RV systolic function - Problems:Assessment/Plan (1) Partial small bowel obstruction Status: Acute Assessment/Plan: Appears resolved. partial SBO likely due to adhesions,- PO intake: 1500 in yesterday, 590 so far today. Plan check KUB, appears to be doing well. (2) Hypokalemia Status: Acute Assessment/Plan: Resolved with replacement, but recurred some - more replacement planned. Also replacing magnesium as well. (3) Hyponatremia Status: Acute Assessment/Plan: chronic at baseline resolved with IVF (4) HTN (hypertension), benign Status: Chronic Assessment/Plan: stable, cont meds with sips Will try to just use metoprolol for rate limiting. (5) Hypothyroid Qualifiers: Qualifier Code: (E03.9) Hypothyroidism, unspecified Status: Chronic Assessment/Plan: on replacement-TSH pending (6) CAD (coronary artery disease) Qualifiers: Qualifier Code: (I25.10) Atherosclerotic heart disease of [place] coronary artery without angina pectoris Status: Chronic Assessment/Plan: denies chest pain-check troponin this am, on tele with unexplained sinus tachy despite IVF, not in sig. pain or anxiety-trial of IVF and cont beta gilbert, check TSH, consider CTA if develops resp. symptoms Has elevated troponin, from demand ischemia and episodes of tachycardia (7) Tachycardia Status: Acute Assessment/Plan: unknown etiology, TSH and electrolyte disturbances resolved. Was in AFIb but converted after 2 doses of diltiazem. She had an episode of her heart rate in the 30's and then a few dropped beats but returned to sinus rhythm will try dose of metoprolol but caution due to inducing hypotension or AV block (8) Anemia Qualifiers: Qualifier Code: (D64.9) Anemia, unspecified Status: Acute Assessment/Plan: dilutional (9) Atrial fibrillation with rapid ventricular response Status: Acute Assessment/Plan: Presumed new onset, and actually just converted NSR now again. Patient asymptomatic. She converted to NSR after 2 IV doses of diltiazem AM of 09/16/2016 but then developed bradycardia. During the afternoon of 09/16/2016 little response to IV metoprolol but converted from sinus tachycardia to Afib/flutter with the rate in 80-100's. Started on oral cardizem. Patient currently taking aspirin for CAD and will continue this. CHADs-Vasc2 score of 5. Reviewed with patient the recommendation to start anti-coagulation and she wants to discuss this with her daughter. Will order echocardiogram, they would like me to review with Dr Singh. He suggested starting warfarin. Converted to sinus rhythm with rate under 100 (10) Troponin level elevated Status: Acute Assessment/Plan: from demand ischemia - Disposition: Disposition: likely home in 1 day. - Discharge Plan Prescriptions: Warfarin Sodium [COUMADIN 2.5 MG TABLET (SHF)] 2.5 mg PO DAILY@1600 #30 tablet Follow-Up: Avery Veronica MD [Primary Care Provider] - 09/21/16 11:10 am (They will draw blood and dose your coumadin at that time.) Condition: Stable Disposition: Home w/ Home Health Service
== END 2016-09-19 11:48 | disposition home health service (06) | DRG 389 ==
LOC: ED 14:49 → MS 16:35 → OBSVTOIN 17:24
PROVIDERS: ADMIT Family Medicine; ATTEND Family Medicine
DX: K56.60 Unspecified intestinal obstruction (principal); E87.1 Hypo-osmolality and hyponatremia; I25.10 Atherosclerotic heart disease of native coronary artery without angina pectoris; Z98.61 Coronary angioplasty status; I10 Essential (primary) hypertension; E78.5 Hyperlipidemia, unspecified; E03.9 Hypothyroidism, unspecified; M54.2 Cervicalgia; M47.892 Other spondylosis, cervical region; R00.0 Tachycardia, unspecified; R00.1 Bradycardia, unspecified; I48.91 Unspecified atrial fibrillation

== ENCOUNTER 2016-09-27 19:38 | Emergency (ER) | payer MEDICARE, OTHER ==
[2016-09-27 20:25] LABS: ABSOLUTE NEUTROPHIL COUNT 12.2 K/mm3 (1.8-7.7); BASO # 0.1 K/mm3 (0.0-0.2); BASO % 0.4 % (0.2-1.0); EOS % 0.1 % (0.9-2.9); HEMATOCRIT 38.2 % (37.0-47.0); HEMOGLOBIN 13.2 gm/l (12.0-16.0); IMM NEUT # 0.1 K/mm3 (0-0.2); IMM NEUT% 0.4 % (0-1); LYMPH # 0.6 (1.0-4.8); LYMPH % 4.4 % (15-45); MEAN CELL VOLUME 91.2 fl (81.0-99.0); MEAN CORPUSCULAR HEMOGLOBIN 31.5 pg (27.0-31.0); MEAN CORPUSCULAR HGB CONC 34.6 g/dl (33.0-37.0); MEAN PLATELET VOLUME 9.4 fl (7.4-10.4); MONO # 1.2 (0.0-0.8); MONO % 8.2 % (4-12); NEUT % 86.5 % (43-75); PLATELET COUNT 268 K/mm3 (130-400); RED CELL DISTRIBUTION WIDTH 13.4 % (11.5-14.5)
[2016-09-27 20:44] LABS: ALB/GLOB RATIO 1.6 (>1.0); ALBUMIN 4.4 gm/dL (3.5-5.7); CALCIUM 9.6 mg/dL (8.6-10.3); MAGNESIUM 2.3 mg/dL (1.9-2.7)
[2016-09-27 20:47] LABS: URINE BILIRUBIN NEGATIVE (NEGATIVE); URINE BLOOD NEGATIVE (NEGATIVE); URINE GLUCOSE (UA) NEGATIVE (NEGATIVE); URINE LEUKOCYTE ESTERASE NEGATIVE (NEGATIVE); URINE NITRITE NEGATIVE (NEGATIVE); URINE PROTEIN TRACE (NEGATIVE); URINE UROBILINOGEN NORMAL (0-1 mg/dl)
[2016-09-27 20:53] LABS: URINE APPEARANCE CLEAR; URINE COLOR YELLOW
--- NOTE | 2016-09-27 20:54 | RAD ---
Exam: Acute abdominal series with PA chest COMPARISON: 09/18/2016, 09/15/2016, CT 09/14/2016 INDICATION: Nausea, vomiting and diarrhea. FINDINGS: Supine and upright views of the abdomen and a PA view the chest were obtained. There is a normal bowel gas pattern without evidence of obstruction. A few air-fluid levels are seen within the ascending colon on the upright view. There is no free air under the diaphragm. Atheromatous aorta. Calcifications within the left upper quadrant are again appreciated, related to splenic hilum. Dense vascular calcifications are also noted. There is a chronic compression fracture of L1. Advanced degenerative changes are seen within the lower lumbar spine. Right hip arthroplasty is noted. Cardiac silhouette is within normal limits and stable. Lungs are well-inflated. There is no focal airspace disease or pleural effusion. Erosive changes are again appreciated in the right shoulder. IMPRESSION: 1. No evidence of bowel obstruction or perforation. A few air-fluid levels are seen within the ascending colon, correlate for enteritis. 2. No acute pulmonary process.
== END 2016-09-27 21:24 | disposition home or self-care (01) ==
LOC: ED 19:38
DX: R11.2 Nausea with vomiting, unspecified (principal); R19.7 Diarrhea, unspecified; I10 Essential (primary) hypertension; I25.2 Old myocardial infarction